=== PATIENT | female | born 1960 | race Caucasian/White ===

== ENCOUNTER 2018-12-30 13:06 | Emergency (ER) | payer OTHER ==
[~2018-12-30] VITALS: Ht 160 cm; Wt 54.4 kg
[~2018-12-30 13:06] MED LIST: PRED10 PO; Prednisone20 MG PO
[2018-12-30] MEDS ORDERED: Vistaril25 MG PO (14:06)
== END 2018-12-30 14:15 | disposition home or self-care (01) ==
LOC: ER 13:06
DX: L25.9 Unspecified contact dermatitis, unspecified cause (principal)
CPT/HCPCS: 96372; 99282-25; J3301

== ENCOUNTER 2019-08-05 12:11 | Emergency (ER) | payer OTHER ==
[~2019-08-05] VITALS: Ht 160 cm; Wt 53.5 kg
[~2019-08-05 12:11] MED LIST changes: +Vistaril25 MG PO
[2019-08-05] MEDS ORDERED: [UNRECOGNIZED DRUG - OTHER] TOP (13:01)
[2019-08-05] MEDS ORDERED: Pepcid20 MG PO (13:01)
== END 2019-08-05 13:10 | disposition home or self-care (01) ==
LOC: ER 12:11
DX: L23.7 Allergic contact dermatitis due to plants, except food (principal)
CPT/HCPCS: 96372; 99283-25; J3301

== ENCOUNTER 2021-03-10 23:54 | Emergency (ER) | payer OTHER ==
[~2021-03-10] VITALS: Ht 162.6 cm; Wt 52.2 kg
[~2021-03-10 23:54] MED LIST changes: +Pepcid20 MG PO; +[UNRECOGNIZED DRUG - OTHER] TOP
== END 2021-03-11 01:01 | disposition home or self-care (01) ==
LOC: ER 23:54
DX: L25.9 Unspecified contact dermatitis, unspecified cause (principal)
CPT/HCPCS: 96372; 99283-25; A9270; J3301

== ENCOUNTER 2022-06-08 10:13 | Inpatient (IN) | payer OTHER ==
[~2022-06-08] VITALS: Ht 172.7 cm; Wt 55.9 kg
[2022-06-08 10:38] LABS: Base Excess Venous -0.5 mmol/L; Bicarbonate Venous 23.1 mmol/L (24.0-30.0); PCO2 Venous 53.6 mmHg (38-42)
[2022-06-08 10:49] LABS: BASOPHILS ABSOLUTE AUTO 0.03 K/mm3 (0.00-0.23); BASOPHILS PERCENT AUTO 0 % (0-2); EOSINOPHILS ABSOLUTE AUTO 0.02 K/mm3 (0.00-0.68); EOSINOPHILS PERCENT AUTO 0 % (0-6); Hematocrit 40.8 % (33.0-51.0); Hemoglobin 13.1 g/dL (11.5-16.0); IMMATURE GRAN ABSOLUTE AUTO 0.05 K/mm3 (0.00-0.10); IMMATURE GRAN PERCENT AUTO 0 % (0-1); LYMPHOCYTES ABSOLUTE AUTO 1.17 K/mm3 (0.84-5.20); LYMPHOCYTES PERCENT AUTO 10 % (21-46); MONOCYTES ABSOLUTE AUTO 0.72 K/mm3 (0.16-1.47); MONOCYTES PERCENT AUTO 6 % (4-13); Mean Corpuscular HGB Conc 32.1 g/dL (31.5-36.5); Mean Corpuscular Volume 91 fL (80-100); Mean Platelet Volume 12.7 fL (9.1-12.4); NEUTROPHILS ABSOLUTE AUTO 10.35 K/mm3 (1.96-9.15); NEUTROPHILS PERCENT AUTO 84 % (41-73); Platelet Count 191 K/mm3 (150-400); RDW Coefficient Variation 12.4 % (11.7-14.2); RDW Standard Deviation 41.2 fL (35.1-46.3); Red Blood Cell Count 4.51 M/mm3 (3.80-5.20); White Blood Cell Count 12.34 K/mm3 (4.00-11.30)
[2022-06-08 10:53] LABS: Albumin, Blood 4.1 g/dL (3.4-5.0); Bilirubin, Total 0.3 mg/dL (0.1-1.0); Bun/Creatinine Ratio 33.3 (12.0-20.0); Calcium, Blood 8.9 mg/dL (8.5-10.1); Creatinine, Blood 0.63 mg/dL (0.40-1.00); Globulin, Blood 4.3 g/dL (2.2-4.0); Potassium, Blood 2.6 mmol/L (3.5-5.5); Total Protein, Blood 8.4 g/dL (6.4-8.2)
[2022-06-08 11:02] LABS: Source, Urine Straight Cath
[2022-06-08 11:31] LABS: U Amphetamine Screen DETECTED; U Barbituate Screen Not Detected; U Benzodiazapine Screen Not Detected; U Buprenorphine Screen Not Detected; U Cannabinoids Screen Not Detected; U Cocaine Screen Not Detected; U Methadone Screen Not Detected; U Methamphetamine Screen DETECTED; U Opiates Screen Not Detected; U Oxycodone Screen Not Detected; U Phencyclidine Screen Not Detected; U Propoxyphene Screen Not Detected
[2022-06-08 11:36] LABS: Bilirubin, Urine Neg (Neg); Blood, Urine 3+ (Neg); Glucose Qualitative, Urine 3+ (Neg); Ketones, Urine Neg (Neg); Leukocyte Esterase, Urine Neg (Neg); Nitrite, Urine Neg (Neg); Protein, Urine 2+ (Neg); Urobilinogen, Urine NORM (Normal)
[2022-06-08 11:37] LABS: Appearance, Urine Clear (Clear); Color, Urine Pale Yellow (P-Yellow)
[2022-06-08 11:39] LABS: Bacteria Not Seen /hpf; Squamous Epithelial Cells Not Seen /hpf (Few); White Blood Cells, Urine 0-2 /hpf (0-5)
[2022-06-08 11:57] LABS: Influenza A, PCR NEGATIVE (NEGATIVE); Influenza B, PCR NEGATIVE (NEGATIVE); Resp Syncytial Virus, PCR NEGATIVE (NEGATIVE); SARS-Cov-2 (COVID-19) PCR, MMC NEGATIVE (NEGATIVE)
--- NOTE | 2022-06-08 12:25 | NUR ---
Initial Pal Care visit to ER Pt intubated and with warming bear hugger device on. Bruising/redness noted to left sabianism and left shoulder. Pt is unresponsive. Update obtained from RN & , who just gave update to pt's son, Marcos, including prognosis that this event is not survivable. RN to call me when pt's children and brother arrive to the unit.
--- NOTE | 2022-06-08 13:00 | NUR ---
Met with pt's son-Marcos, Tomasa and pt's brother, Renard in consult room to review their understanding of pt's condition, prognosis and plan going forward. They have other family members who suffered demise due to intracranial bleed and have had some conversations with their mom about what she would want if she also suffered a similar event. Family understand that pt is not able to recover from this. They are waiting for one additional family member to arrive, Pt's [id number], & then they would like her medicated for comfort and extubated. Khushbu states she does not want to leave her mom like this any longer than necessary. Time spent answering their questions, supportive listening and participating in life review with them. They deny desire for pastoral care visit at this time. Family aware that pt's HR is slowing and that she may have cessation of heart function prior to extubation. Family calm, appropriately greiving and tearful. They are supportive of one another and asking appropriate questions about their own health and risks for similar events due to multiple family members suffering life ending CVA's.
--- NOTE | 2022-06-08 14:00 | NUR ---
Pt's children have decided on organ donation and are in agreement with postponing extubation until donor team is ready. Marcos and Khushbu plan to spend the rest of the day at home but want to be notified of changes and be able to come back to see their mom prior to extubation/OR for harvesing organs. They are aware that pt's condition may deteriorate and she may prior to extubation. They want pt medicated for comfort if needed and to ensure that she is not suffering in any way. Pal Care to cont to maintain contact with family for support.
--- NOTE | 2022-06-08 15:37 | NUR ---
ADMIT PT ARRIVED TO ICU 13 VIA BED AT 1415. PT IS INTUBATED AND UNRESPONSIVE UPON ARRIVAL. PT UNRESPONSIVE TO NOXIOUS STIMULI. PT WITHOUT COUGH OR GAG. PUPILS 6MM AND FIXED. PT WITHOUT COUGH OR GAG REFLEX. VENT SETTINGS AC 16, TV 375, PEEP 5, FIO2 40%. OGT PLACED TO LIS WITH LARGE AMOUNT OF BILE/COFFEE GROUND OUTPUT NOTED. PERIPHERAL IV'S IN PLACE, SALINE LOCKED. COLUNGA IN PLACE WITH SCANT AMOUNT OF YELLOW URINE OUTPUT NOTED. [facility] CALLED AND UPDATED WITH CURRENT PT CONDITION. RECTAL TEMP PROBE PLACED, PT INITIAL TEMP 91.5F. WARMING BLANKET APPLIED. PT INTERMITENTLY HYPOTENSIVE. DR ESPOSITO NOTIFIED. OK TO START PERIPHERAL LEVOPHED IF NEEDED PER DR ESPOSITO. WILL CONTINUE TO MONITOR.
--- NOTE | 2022-06-08 17:20 | NUR ---
SHIFT SUMMARY NO ACUTE CHANGES IN NEURO STATUS. VENT SETTINGS REMAINS UNCHANGED. LEVOPHED INFUSING AT 4 MCG/MIN THROUGH R AC IV. [facility] IN ROUTE. DR ESPOSITO NOTIFIED. CONSULT FOR INVOICE CLERK RECIEVED. DR RODRIGUEZ NOTIFIED OF CONSULT. NO ORDERS RECIEVED. WILL CONTINUE TO MONITOR AND REPORT OFF TO ONCOMING RN.
--- NOTE | 2022-06-08 22:22 | NUR ---
ASSUMED CARE/BEGINING OF SHIFT ASSUMED CARE AT 1900. PT INTUBATED W/ NO SEDATION. AC/VC 16/375/5/40% RR 19. LUNGS SOUNDS COARSE. SMALL AMOUNT OF MORALES THICK SECRETIONS SUCTIONED FROM ETT. OGT TO LIS. PUPILS FIXED, AND CORNEAL REFLEX ABSENT. NO COUGH, GAG, OR SWALLOW. NO RESPONSE TO NOXIOUS STIMULI IN BUE. PT INTERMITTENTLY MOVING BLE WITHOUT STIMULUS. MINIMAL MOVEMENT IN BLE AT TIMES TO NOXIOUS STIMULI, NO RESPONSE AT OTHER TIMES. [facility] REP ARRIVED APPROX. 1930. REQUESTING LABS TO BE DRAWN FOR ORGAN DONATION APPROVAL. DR RODRIGUEZ CALLED REGARDING NEED FOR LINE PLACEMENT D/T AMOUNT OF BLOOD NEEDED. DR RODRIGUEZ ATTEMPTED PLACEMENT IN L RADIAL. TR BAND APPLIED. SITE SOFT, NO S/S BLEEDING NOTED. DR RODRIGUEZ PLACED ART LINE IN L FEMORAL. BLOOD DRAWN AND GIVEN TO [facility] REP. CURRENTLY IN SR 90'S. MAP GREATER THAN 65 AND SBP GREATER THAN 95. LEVOPHED GTT AT 5MCG/MIN. SPO2 GREATER THAN 90%.
[2022-06-08 23:28] LABS: Source, Urine Foley catheter
[2022-06-08 23:32] LABS: Bilirubin, Urine Neg (Neg); Blood, Urine 3+ (Neg); Glucose Qualitative, Urine Neg (Neg); Ketones, Urine Neg (Neg); Leukocyte Esterase, Urine 2+ (Neg); Nitrite, Urine Neg (Neg); Protein, Urine 1+ (Neg); Specific Gravity, Urine 1.005 (1.003-1.022); Urobilinogen, Urine NORM (Normal)
[2022-06-08 23:47] LABS: Appearance, Urine Clear (Clear); Color, Urine Yellow (P-Yellow)
[2022-06-08 23:48] LABS: Bacteria Few /hpf; Red Blood Cells, Urine 0-2 /hpf (0-2); Squamous Epithelial Cells Not Seen /hpf (Few)
[2022-06-09 03:43] LABS: BASOPHILS ABSOLUTE AUTO 0.07 K/mm3 (0.00-0.23); BASOPHILS PERCENT AUTO 0 % (0-2); EOSINOPHILS ABSOLUTE AUTO 0.09 K/mm3 (0.00-0.68); EOSINOPHILS PERCENT AUTO 1 % (0-6); Hematocrit 32.4 % (33.0-51.0); Hemoglobin 11.3 g/dL (11.5-16.0); IMMATURE GRAN ABSOLUTE AUTO 0.11 K/mm3 (0.00-0.10); IMMATURE GRAN PERCENT AUTO 1 % (0-1); LYMPHOCYTES ABSOLUTE AUTO 1.72 K/mm3 (0.84-5.20); LYMPHOCYTES PERCENT AUTO 9 % (21-46); MONOCYTES ABSOLUTE AUTO 0.96 K/mm3 (0.16-1.47); MONOCYTES PERCENT AUTO 5 % (4-13); Mean Corpuscular HGB 30.3 pg (26.0-34.0); Mean Corpuscular HGB Conc 34.9 g/dL (31.5-36.5); Mean Corpuscular Volume 87 fL (80-100); Mean Platelet Volume 12.5 fL (9.1-12.4); NEUTROPHILS ABSOLUTE AUTO 16.05 K/mm3 (1.96-9.15); NEUTROPHILS PERCENT AUTO 84 % (41-73); Platelet Count 215 K/mm3 (150-400); RDW Coefficient Variation 12.8 % (11.7-14.2); RDW Standard Deviation 40.6 fL (35.1-46.3); Red Blood Cell Count 3.73 M/mm3 (3.80-5.20)
[2022-06-09 03:56] LABS: Magnesium, Blood 2.1 mg/dL (1.6-2.4)
[2022-06-09 04:00] LABS: Albumin, Blood 2.9 g/dL (3.4-5.0); Albumin/Globulin Ratio 0.9 (0.8-1.8); Bilirubin, Direct 0.2 mg/dL (0.0-0.3); Bilirubin, Indirect 0.7 mg/dL (0.1-0.7); Bilirubin, Total 0.9 mg/dL (0.1-1.0); Bun/Creatinine Ratio 18.1 (12.0-20.0); Calcium, Blood 8.5 mg/dL (8.5-10.1); Creatinine, Blood 1.93 mg/dL (0.40-1.00); Globulin, Blood 3.4 g/dL (2.2-4.0); Phosphorus, Blood 1.6 mg/dL (2.5-4.9); Potassium, Blood 3.4 mmol/L (3.5-5.5); Total Protein, Blood 6.3 g/dL (6.4-8.2)
--- NOTE | 2022-06-09 05:39 | NUR ---
SHIFT SUMMARY PT REMAINS INTUBATED AND UNRESTRAINED. CURRENT VENT SETTINGS 14/375/5/30% RR 14. NO COUGH, GAG, OR SWALLOW. ONE EPISODE OF BREATHING OVER THE VENT RR 15-16 WITH STIMULI THIS AM. PUPILS UNEQUEL, RIGHT 4MM/ LEFT 5M, BOTH FIXED AND NONRESPONSIVE. PT CONTINUES TO HAVE SPONTANEOUS MOVEMENT AT TIMES IN BLE. PT WILL MOVE WITH FIRST STIMULATION, DECREASED/ABSENT MOVEMENT WITH ADDITIONAL STIMULI. SR/ST 90-100'S. ARTERIAL LINE SBP 95-140'S. PT HYPERTENSIVE AFTER TURNS UP TO 180'S, SLOWLY RECOVERS TO BASELINE. OGT TO LIS, RED/BROWN OUTPUT W/ SEDIMENT. COLUNGA PATENT AND DRAINING TO GRAVITY. 140ML OUTPUT THIS SHIFT. DR CORREIA CALLED REGARDING PHOS 1.6 AND POTASSIUM 3.4. ORDER RECEIVED.
--- NOTE | 2022-06-09 07:50 | NUR ---
ASSUMED CARE PT IS INTUBATED ON //30%; SPO2 >92%. MAP >65; BP EXTREMELY LABILE; SBP IN THE 90-100'S AT REST AND UP TO 180-190 W/ INTERVENTION. LEVOPHED GTT AT 8MCG. TEMP: 97.6. COARSE LUNG SOUNDS; OFFGOING RN NOTED THAT O2 SATS WENT FROM >97% TO 92~% W/ SAME VENT SETTINGS OVER NIGHT. MINIMAL URINE OUTPUT NOTED FOR OFFGOING RN. NEURO: NO RESPONSE TO ANY PAINFUL/NOXIOUS STIMULI. SOME INTERMITTENT TWITCHING IN RIGHT FOOT NOTED THIS AM (NOT NEW) AND POSITIVE BABINSKI'S REFLEX WITH FLEXION/SUPINATION. NO DOLLS EYE/CORNEAL REFLEX. PUPILS FIXED W/ RIGHT 3MM AND LEFT 5MM. NO GAG OR COUGH NOTED.
--- NOTE | 2022-06-09 08:30 | NUR ---
Comfort care visit. Pt unchanged from assessment yesterday in ER. EMR reviewed. Pt remains ventilated, unresponsive to painful stimuli and other reflexes. Transplant team expected today. Son, Marcos, updated on status and anticipated timeframe for team to begin evaluating pt for organ donation. Pt does not show any nonverbal indicators of suffering, pain, anxiety or distress.
[2022-06-09 11:13] LABS: PCO2 Arterial 35.5 mmHg (35-45); PO2 Arterial 56.9 mmHg (80-100); pH Blood Arterial 7.45 (7.35-7.45)
[2022-06-09 12:24] LABS: PCO2 Arterial 36.3 mmHg (35-45); PO2 Arterial 89.1 mmHg (80-100); pH Blood Arterial 7.43 (7.35-7.45)
[2022-06-09 12:44] LABS: PCO2 Arterial 60.2 mmHg (35-45); PO2 Arterial 242 mmHg (80-100); pH Blood Arterial 7.25 (7.35-7.45)
--- NOTE | 2022-06-09 12:46 | NUR ---
UPDATE APNEA TEST INITIATED AT 1220 W/ 100% O2. 1232 APNEA INITIATED VENTILATOR DISCONNECTED. 1241 ABG TAKEN AND VENTILATOR RECONNECTED. NO RESPIRATORY EFFORT MADE BY PATIENT
[2022-06-09 15:04] LABS: Hematocrit 35.1 % (33.0-51.0); Hemoglobin 11.8 g/dL (11.5-16.0); Mean Corpuscular HGB 29.8 pg (26.0-34.0); Mean Corpuscular HGB Conc 33.6 g/dL (31.5-36.5); Mean Corpuscular Volume 89 fL (80-100); Mean Platelet Volume 12.1 fL (9.1-12.4); Platelet Count 190 K/mm3 (150-400); RDW Coefficient Variation 13.2 % (11.7-14.2); RDW Standard Deviation 42.7 fL (35.1-46.3); Red Blood Cell Count 3.96 M/mm3 (3.80-5.20)
--- NOTE | 2022-06-09 15:04 | NUR ---
Per communication with son t/o the day, Family plans to come visit pt this agustín one last time before she is transferred to [facility] for organ donation.
[2022-06-09 15:15] LABS: White Blood Cell Count 17.97 K/mm3 (4.00-11.30)
[2022-06-09 15:20] LABS: International Normalized Ratio 1.17; Prothrombin Time Results 12.2 Sec (9.7-11.5)
[2022-06-09 15:24] LABS: Alanine Aminotransfer (ALT/SGP 35 U/L (12-78); Albumin, Blood 2.6 g/dL (3.4-5.0); Albumin/Globulin Ratio 0.7 (0.8-1.8); Alk Phos 86 U/L (50-136); Anion Gap 9 mmol/L (6-16); Aspartate Aminotrans (AST/SGOT 41 U/L (12-37); Bilirubin, Direct 0.1 mg/dL (0.0-0.3); Bilirubin, Indirect 0.5 mg/dL (0.1-0.7); Bilirubin, Total 0.6 mg/dL (0.1-1.0); Blood Urea Nitrogen 42 mg/dL (8-24); Bun/Creatinine Ratio 16.5 (12.0-20.0); CO2, Blood 24 mmol/L (21-32); Calcium, Blood 8.1 mg/dL (8.5-10.1); Chloride, Blood 110 mmol/L (98-108); Creatinine, Blood 2.55 mg/dL (0.40-1.00); Globulin, Blood 3.7 g/dL (2.2-4.0); Glomerular Filtration Rate 21 (60-); Glucose, Blood 122 mg/dL (70-99); Potassium, Blood 3.4 mmol/L (3.5-5.5); Sodium, Blood 143 mmol/L (136-145); Total Protein, Blood 6.3 g/dL (6.4-8.2)
[2022-06-09 15:28] LABS: Phosphorus, Blood 4.6 mg/dL (2.5-4.9)
[2022-06-09 15:37] LABS: BAND PERCENT MAN 12 % (0-8); BASOPHILS ABSOLUTE MAN 0.35 K/mm3 (0.00-0.23); BASOPHILS PERCENT MAN 2 % (0-2); EOSINOPHILS PERCENT MAN 0 % (0-6); LYMPHOCYTES ABSOLUTE MAN 1.61 K/mm3 (0.84-5.20); LYMPHOCYTES PERCENT MAN 9 % (21-46); MONOCYTES ABSOLUTE MAN 0.53 K/mm3 (0.16-1.47); MONOCYTES PERCENT MAN 3 % (4-13); NEUTROPHILS ABSOLUTE MAN 15.45 K/mm3 (1.96-9.15); SEG NEUTROPHILS PERCENT MAN 74 % (41-73); TOTAL CELLS COUNTED 100
[2022-06-09 15:39] LABS: PCO2 Arterial 42.7 mmHg (35-45); PO2 Arterial 80.4 mmHg (80-100); pH Blood Arterial 7.33 (7.35-7.45)
--- NOTE | 2022-06-09 17:47 | NUR ---
SHIFT SUMMARY.... THE PT'S CARE HAS BEEN GUIDED BY [facility] ALONG WITH HOSPITAL PROVIDERS. THE PT'S BP HAS BEEN VERY LABILE ALL SHIFT ONE MOMENT ON LEVOPHED AT 16MCG WITH MAPS <60 THE NEXT SBPs IN THE 200'S. PROVIDER'S AWARE AND LEVOPHED HAS BEEN TITRATED NEEDED. POSITIVE APNEA TRIAL WAS DONE AT 1243. [facility] PT'S URINARY OUTPUT FOR THIS SHIFT HAS GREATLY DECLINED, [facility] AND PROVIDERS AWARE. BEDSIDE BRONCH WAS DONE BY DR. RODRIGUEZ, THE PT'S ET TUBE WAS REPOSITIONED AFTER THE BRONCH WAS DONE TO 22 AT THE TEETH. OG TUBE WAS ADVANCED 8CM PER DR. RODRIGUEZ'S ORDERS, XRAY WAS DONE TO CHECK PLACEMENT. THE PT HAS NOT HAD A BM THIS SHIFT. [facility] IS COORDINATING TRANSPORT FOR THE PT UP TO THEIR [facility] FOR HARVE[facility]. 1730 FAMILY AT THE BEDSIDE, [facility]MER AT THE BEDSIDE WITH THE FAMILY TO ANSWER QUESTIONS. WILL CONTINUE TO MONITOR UNTIL REPORT IS GIVEN TO ONCOMING RN.
--- NOTE | 2022-06-09 19:00 | NUR ---
ASSUMED CARE PT INTUBATED W/ NO SEDATION AND UNRESTRAINED. VENT SETTINGS AC/VC 14/400/5/100%. RR 14. SPO2 100%. LEVOPHED, LEVOTHYROXINE, KCL, NS W/ 20 MEQ POTASSIUM, MAG SULFATE, DOXYCYCLINE, AND FLAGYL INFUSING. ART LINE IN PLACE TO LEFT FEMORAL. ABP LABILE. COLUNGA PATENT AND CLAMPED FOR UA COLLECTION. OGT TO LIS. BEDSIDE REPORT COMPLETED W/ WANDA RN AND JADEN RN.
[2022-06-09 19:39] LABS: PCO2 Arterial 44.5 mmHg (35-45); PO2 Arterial 83.1 mmHg (80-100)
[2022-06-09 19:40] LABS: pH Blood Arterial 7.28 (7.35-7.45)
[2022-06-09 20:19] LABS: Source, Urine Fem Cath
[2022-06-09 20:28] LABS: Appearance, Urine Hazy (Clear); Bilirubin, Urine Neg (Neg); Blood, Urine 4+ (Neg); Color, Urine Yellow (P-Yellow); Glucose Qualitative, Urine Neg (Neg); Ketones, Urine Neg (Neg); Leukocyte Esterase, Urine 1+ (Neg); Nitrite, Urine Neg (Neg); Protein, Urine 2+ (Neg); Urobilinogen, Urine NORM (Normal)
[2022-06-09 20:42] LABS: Albumin, Blood 2.3 g/dL (3.4-5.0); Anion Gap 7 mmol/L (6-16); Blood Urea Nitrogen 38 mg/dL (8-24); Bun/Creatinine Ratio 16.7 (12.0-20.0); CO2, Blood 21 mmol/L (21-32); Calcium, Blood 8.3 mg/dL (8.5-10.1); Chloride, Blood 117 mmol/L (98-108); Creatinine, Blood 2.27 mg/dL (0.40-1.00); Glomerular Filtration Rate 24 (60-); Glucose, Blood 99 mg/dL (70-99); Magnesium, Blood 2.8 mg/dL (1.6-2.4); Phosphorus, Blood 3.9 mg/dL (2.5-4.9); Potassium, Blood 4.3 mmol/L (3.5-5.5); Sodium, Blood 145 mmol/L (136-145)
[2022-06-09 20:46] LABS: Bacteria Mod /hpf; Hyaline Casts 0-2 /lpf (0-2); Squamous Epithelial Cells Few /hpf (Few)
[2022-06-09 20:48] LABS: PCO2 Arterial 45.4 mmHg (35-45); PO2 Arterial 90.3 mmHg (80-100); pH Blood Arterial 7.33 (7.35-7.45)
--- NOTE | 2022-06-09 23:01 | NUR ---
SHIFT SUMMARY/TRANSFER PT REMAINS INTUBATED W/ NO SEDATION AND UNRESTRAINED. VENT SETTINGS AC/VC 14/400/5/70% W/ SPO2 GREATER THAN 90%. RR 14. PT HAD NO NEURO RESPONSES OR REFLEXES. [facility] TRANSPORT ARRIVED AT 2138. REPORT GIVEN BY DONOR TEAM, KELSEY CANALES, AND THIS RN. PT TRANSFERED TO [facility] VIA LIFT W/O DIFFICULTY. EXTRA LEVOPHED, LEVOTHYROXINE, NS W/ 20MEQ POTASSIUM AND VASOPRESSION SENT WITH CCT. PATIENT BELONGINGS SENT WITH CCT. PT OUT OF ROOM AT 2230.
== END 2022-06-09 22:30 | disposition short-term general hospital (02) | DRG 304 ==
LOC: ER 10:13 → ICUW 10:14
PROVIDERS: Emergency Medicine; Internal Medicine; Internal Medicine Critical Care Medicine; ADMIT Family Medicine
PROC: 0BH17EZ Insertion of Endotracheal Airway into Trachea, Via Natural or Artificial Opening (ICD-10-PCS; principal; 2022-06-09)
PROC: 04HY32Z Insertion of Monitoring Device into Lower Artery, Percutaneous Approach (ICD-10-PCS; 2022-06-09)
PROC: 4A133B1 Monitoring of Arterial Pressure, Peripheral, Percutaneous Approach (ICD-10-PCS; 2022-06-09)
PROC: 4A133J1 Monitoring of Arterial Pulse, Peripheral, Percutaneous Approach (ICD-10-PCS; 2022-06-09)
PROC: 5A09357 Assistance with Respiratory Ventilation, Less than 24 Consecutive Hours, Continuous Positive Airway Pressure (ICD-10-PCS; 2022-06-09)
PROC: 3E033XZ Introduction of Vasopressor into Peripheral Vein, Percutaneous Approach (ICD-10-PCS; 2022-06-09)
DX: I16.1 Hypertensive emergency (principal); I61.8 Other nontraumatic intracerebral hemorrhage; R40.20 Unspecified coma; G91.9 Hydrocephalus, unspecified; Z51.5 Encounter for palliative care; Z66 Do not resuscitate; F15.10 Other stimulant abuse, uncomplicated; Z20.822 Contact with and (suspected) exposure to COVID-19; B95.61 Methicillin susceptible Staphylococcus aureus infection as the cause of diseases classified elsewhere
CPT/HCPCS: 0241U; 36415; 51702; 70450; 71045; 72125; 80053; 80069; 80076; 81001; 82248; 82803; 83735; 84100; 84484; 85025; 85610; 85730; 86850; 86900; 86901; 87070; 87077; 87086; 87147; 87186; 87205; 93005; 93010; 94002; 94003; 96366; 96375; A9270; C9113; G0378; J0610; J0690; J1644; J1720; J1815; J1940; J1953; J2704; J3475; J3480; J7030; J7040; J7050; J7060; P9047